=== PATIENT | male | born 1970 | race Caucasian/White ===

== ENCOUNTER 2017-03-05 16:14 | Emergency (ER) | payer OTHER ==
[2017-03-05 16:34] VITALS: BP 147/87; PULSE 98; RESP 22; TEMP 98.3; O2SAT 98
== END 2017-03-05 17:22 | disposition home or self-care (01) | DRG 153 ==
LOC: ED 16:14
DX: H66.92 Otitis media, unspecified, left ear (principal)
CPT/HCPCS: 99282